=== PATIENT | female | born 1990 ===

== ENCOUNTER 2025-02-22 14:49 | Inpatient (IN) | payer MEDICAID, SELFPAY ==
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
[2025-02-22 17:20] VITALS: BMI 42.3
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
--- OUTSIDE RECORDS SUMMARY | 2025-02-22 18:58 | XMS_ITS | Encounter Summary ---
Author Organization [facility] Address [address] [place] [address] Care Team Providers Care Corrective Therapy Aide Name Role Phone Cassidy Nicolas MD Unavailable Cassidy Nicolas MD Primary Care Provider [phone] Alise Harris MD Primary Care Provider [phone] Alise Harris MD Primary Care Provider Cassidy Nicolas MD Primary Care Provider Alise Harris MD Primary Care Provider Pcp, No Primary Care Provider Unavailabl e Encounter Details Date Type Department Care Team (Late st Contact Info) Description 07/06/2018 Lab Requisition [facility] - [address] [id number] Trinidad Isaacs, DO 300 [facility], [address] [place] [address] [phone] Dysuria Social History Tobacco Use Types Packs/Day Years Used Date Smoking Tobacco: Never Smokeless Tobacco: Never Alcohol Use Standard Drinks/Week Comments Yes 0 (1 standard drink = 0.6 oz pur e alcohol) rarely Comments No Sex and Gender Information Value Date Recorded Sex Assigned at Female 05/20/2023 3:51 PM EST Legal Sex Female 11:50 AM EDT Gender Identity Female 05/20/2023 4:08 PM EST Sexual Orientation Straight 02/21/2025 6: 52 PM EST documented as of this encounter Plan of Treatment Not on file documented as of this encounter Procedures Procedure Name Priority Date/Time Associated Diagnosis Comments TOXICOLOGY SCREEN, URINE (FCU) Routine 07/06/2018 10:28 AM EDT Dysuria TOXICOLOGY SCREEN, URINE Routine 07/06/2018 10:28 AM EDT Dysuria URINE CULTURE AND COLONY COUNT Routine 07/06/2018 10:28 AM EDT Dysuria documented in this encounter Results * (ABNORMAL) Toxicology screen, urine (07/06/2018 10:28 AM EDT) Amphetamine Qualitative, Ur None Detected None Detected 07/06/2018 2:34 PM [facility] Barbiturates Qualitative, Ur None Detected None Detected 07/06/2018 2:34 PM [facility] Benzodiazepines Qualitative, Ur None Detected None Detected 07/06/2018 2:34 PM [facility] Methadone Qualitative, Ur None Detected None Detected 07/06/2018 2:34 PM [facility] Opiates Qualitative, Ur None Detected None Detected 07/06/2018 2:34 PM [facility] Cannabinoids Qualitative, Ur Detected(A) None Detected 07/06/2018 2:34 PM [facility] Cocaine Qualitative, Ur None Detected None Detected 07/06/2018 2:34 PM [facility] Oxycodone Qualitative Urine None Detected None Detected 07/06/2018 2:34 PM [facility] Buprenorphine Qualitative Urine None Detected None Detected 07/06/2018 2:34 PM [facility] Fentanyl Qualitative, Ur None Detected None Detected 07/06/2018 2:34 PM [facility] Creatinine, Urine 290.3 20.0 - 400.0 mg/dL 07/06/2018 2:34 PM [facility] Urine specimen (specimen) 07/06/2018 10:28 AM EDT 07/06/2018 10:28 AM EDT [facility] URINE ORDERABLES Final Result Performing Organization Address City/[facility]/ZIP Co de Phone Number [facility] [address] [place] [address] * Urine Culture and [place] Count (07/06/2018 10:28 AM EDT) Culture 10,000 - 50,000 colonies/ml Mixed Gram Positive Organisms SUSCEPTIBIL ITY TESTING 07/07/2018 1:00 PM EDT [facility] Urine specimen (specimen) Urine specimen obtained by clean catch procedure / Unknown Collection / Unknown 07/06/2018 10:28 AM EDT 07/06/2018 10:28 AM EDT Narrative [facility] - 07/07/2018 1:00 PM EDT Organisms present in low colony counts are not considered significant. No further work up will be performed. Trinidad [facility] DO MICROBIOLOGY - GENERAL ORDERAB LES Final Result Performing Organization Address City/[facility]/ZIP Co de Phone Number [facility] [address] [place], [place] documented in this encounter Visit Diagnoses Diagnosis Dysuria documented in this encounter Additional Health Concerns Infection Onset Date Last Indicated Resolved Time PUI COVID 12/06/2020 12/06/2020 12/07/2020 2:21 AM EDT documented as of this encounter Care Teams Corrective Therapy Aide Relationship Specialty Start Date End Date Cassidy Nicolas MD [address] [place] [address] PCP - Family Medicine 12/05/18 09/24/24 Cassidy Nicolas MD [address] [place] [address] PCP - General 10/06/13 07/18/18 Alise Harris MD [address] [place] [address] PCP - General Family Medicine 07/19/18 12/03/18 [place] [address] PCP - General Family Medicine 12/06/18 02/15/19 [place] [address] PCP - General Family Medicine 02/28/19 04/19/19 [place] [address] PCP - General Family Medicine 04/20/19 05/19/23 [place] [id number] PCP - General 05/20/23 documented as of this encounter
--- OUTSIDE RECORDS SUMMARY | 2025-02-22 18:58 | XMS_ITS | Encounter Summary ---
Author Organization [facility] Address [address] [place] [address] Care Team Providers Care Cytotechnologist/Histotechnologist Name Role Phone Cassidy Nicolas MD Unavailable [phone] Cassidy Nicolas MD Primary Care Provider Alise Harris MD Primary Care Provider [phone] Alise Harris MD Primary Care Provider Cassidy Nicolas MD Primary Care Provider Alise Harris MD Primary Care Provider Pcp, No Primary Care Provider Unavailabl e Encounter Details Date Type Department Care Team (Late st Contact Info) Description 07/06/2018 Ancillary Orders [facility] [address] [facility], [facility] [address] [place] [address] Trinidad Isaacs DO 300 [facility], [facility] [address] [place] [address] Social History Tobacco Use Types Packs/Day Years [...] on file documented as of this encounter Visit Diagnoses Not on filedocumented in this encounter Additional Health Concerns Infection Onset Date Last Indicated Resolved Time PUI COVID 12/06/2020 12/06/2020 12/07/2020 2:21 AM EDT documented as of this encounter Care Teams Cytotechnologist/Histotechnologist Relationship Specialty Start Date End [place] [address] PCP - Family Medicine 12/05/18 09/24/24 [place] [address] PCP - General 10/06/13 07/18/18 [place] [address] PCP - General Family Medicine 07/19/18 12/03/18 [place] [address] PCP - General Family Medicine 12/06/18 02/15/19 [place] [address] PCP - General Family Medicine 02/28/19 04/19/19 [place] [address] PCP - General Family Medicine 04/20/19 05/19/23 [place] [id number] PCP - General 05/20/23 documented as of this encounter
--- OUTSIDE RECORDS SUMMARY | 2025-02-22 18:58 | XMS_ITS | Encounter Summary ---
Author Organization [facility] Address [address] [place] [address] Care Team Providers Care Photogeologist Name Role Phone Cassidy Nicolas MD Unavailable Cassidy Nicolas MD Primary Care Provider Alise Harris MD Primary Care Provider [phone] Alise Harris MD Primary Care Provider [phone] Cassidy Nicolas MD Primary Care Provider Alise Harris MD Primary Care Provider Pcp, No Primary Care Provider Unavailabl e Encounter Details Date Type Department Care Team (Late st Contact Info) Description 07/06/2018 Lab Requisition [facility] [address] [place] [phone] Trinidad Isaacs, DO 300 [facility], [address] [place] [address] [phone] 20 weeks gestation of Social History Tobacco Use Types Packs/Day Years [...] Procedure Name Priority Date/Time Associated Diagnosis Comments LIQUID-BASED PAP TEST Routine 07/06/2018 10:55 AM EDT 20 weeks gestation of documented in this encounter Results * Liquid-Based Pap Test (07/06/2018 10:55 AM EDT) Case Report Gynecologic Cytology Case: [id number] Authorizing Provider: Trinidad Isaacs, Collected: 07/06/2018 1055 Ordering Location: [facility] Received: 07/06/2018 1716 Group First Screen: Gillian Berman Specimen: Liquid-Based Pap, Screening, Cervix, Cloudy 07/10/2018 1:46 PM EDT [facility] Embedded Images 9 1:46 PM EDT [facility] Interpretation NEGATIVE FOR INTRAEPITHELIAL LESION OR MALIGNANCY 07/10/2018 1:46 PM EDT [facility] at 1346 EDT Other Findings SHIFT IN ELEONORA SUGGESTIVE OF BACTERIAL VAGINOSIS 07/10/2018 1:46 PM EDT [facility] Specimen Adequacy Satisfactory for evaluation, endocervical/medrano sformation zone component present 07/10/2018 1:46 PM EDT [facility] LMP 02/12/2018 07/10/2018 1:46 PM EDT [facility] Additional Information The Pap test is a generally effective screening test for squamous cervical cancer and its precursors. However, both false negative and false positive results occur. Results are most reliable when an adequate sample is evaluated on a regular repetitive basis and clinically correlated. Suspicious signs or symptoms may warrant follow-up studies regardless of Pap test findings. 07/10/2018 1:46 PM EDT [facility] Specimen from genital system (specimen) Cervix uteri structure / Unknown 07/06/2018 10:55 AM EDT 07/06/2018 5:16 PM EDT us Trinidad Isaacs DO PATHOLOGY/CYTOLOGY ORDERABLES Final Result [facility] [address] [place] [address] documented in this encounter Visit Diagnoses Diagnosis 20 weeks gestation of documented in this encounter Additional Health Concerns Infection Onset Date Last Indicated Resolved Time PUI COVID 12/06/2020 12/06/2020 12/07/2020 2:21 AM EDT documented as of this encounter Care Teams Photogeologist Relationship Specialty Start Date End Date Cassidy Nicolas MD [address] [place] [address] PCP - Family Medicine 12/05/18 09/24/24 [place] [address] PCP - General 10/06/13 07/18/18 [place] [address] PCP - General Family Medicine 07/19/18 12/03/18 [place] [address] PCP - General Family Medicine 12/06/18 02/15/19 [place] [address] PCP - General Family Medicine 02/28/19 04/19/19 [place] [address] PCP - General Family Medicine 04/20/19 05/19/23 [place] [id number] PCP - General 05/20/23 documented as of this encounter
--- OUTSIDE RECORDS SUMMARY | 2025-02-22 18:58 | XMS_ITS | Encounter Summary ---
Author Organization [facility] Address [address] [place] [address] Care Team Providers Care Clinical Research Nurse Name Role Phone Cassidy Nicolas MD Unavailable Cassidy Nicolas MD Primary Care Provider [phone] Alise Harris MD Primary Care Provider Alise Harris MD Primary Care Provider Cassidy Nicolas MD Primary Care Provider Alise Harris MD Primary Care Provider Pcp, No Primary Care Provider Unavailabl e Encounter Details Date Type Department Care Team (Late st Contact Info) Description 07/06/2018 Ancillary Orders [facility] 300 [facility], [address] [place] [address] Trinidad Isaacs DO 300 [facility], [address] [place] [address] Encounter for anatomic survey Social History Tobacco Use Types Packs/Day Years [...] documented as of this encounter Visit Diagnoses Diagnosis Encounter for anatomic survey documented in this encounter Additional Health Concerns Infection Onset Date Last Indicated Resolved Time PUI COVID 12/06/2020 12/06/2020 12/07/2020 2:21 AM EDT documented as of this encounter Care Teams Clinical Research Nurse Relationship Specialty Start Date End Date Cassidy Nicolas MD [address] [place] [address] PCP - Family Medicine 12/05/18 09/24/24 [place] [address] PCP - General 10/06/13 07/18/18 [place] [address] PCP - General Family Medicine 07/19/18 12/03/18 [place] [address] PCP - General Family Medicine 12/06/18 02/15/19 [place] [address] PCP - General Family Medicine 02/28/19 04/19/19 [place] [address] PCP - General Family Medicine 04/20/19 05/19/23 [place] [address] PCP - General 05/20/23 documented as of this encounter
--- OUTSIDE RECORDS SUMMARY | 2025-02-22 18:58 | XMS_ITS | Encounter Summary ---
Author Organization [facility] Address [address] [place] [address] Care Team Providers Care Testing Machine Operator Name Role Phone Cassidy Nicolas MD Unavailable [phone] Cassidy Nicolas MD Primary Care Provider Alise Harris MD Primary Care Provider Alise Harris MD Primary Care Provider Cassidy Nicolas MD Primary Care Provider Alise Harris MD Primary Care Provider Pcp, No Primary Care Provider Unavailabl e Encounter Details Date Type Department Care Team (Late st Contact Info) Description 07/06/2018 Lab Requisition [facility] [address] [place] [phone] Trinidad Isaacs, DO 300 [facility], [address] [place] [address] [phone] 20 weeks gestation of Social History Tobacco [...] Procedure Name Priority Date/Time Associated Diagnosis Comments C. TRACHOMATIS/N. GONORRHOEAE TMA Routine 07/06/2018 10:55 AM EDT 20 weeks gestation of documented in this encounter Results * C.Trachomatis/N.Gonnorrhea DNA probe (07/06/2018 10:55 AM EDT) Chlamydia trachomatis DNA Negative Negative 07/11/2018 3:20 PM EDT PENDING SALE TO [facility] Neisseria gonorrhoeae DNA Negative Negative 07/11/2018 3:20 PM EDT PENDING SALE TO [facility] Papanicolaou smear specimen (specimen) Cervix uteri structure / Unknown Collection / Unknown 07/06/2018 10:55 AM EDT 07/06/2018 5:17 PM EDT Trinidad Isaacs DO LAB BLOOD ORDERABLES Final Res ult PENDING SALE TO [facility] [address] [place], [place] documented in this encounter Visit Diagnoses Diagnosis 20 weeks gestation of documented in this encounter Additional Health Concerns Infection Onset Date Last Indicated Resolved Time PUI COVID 12/06/2020 12/06/2020 12/07/2020 2:21 AM EDT documented as of this encounter Care Teams Testing Machine Operator Relationship Specialty Start Date End Date Cassidy Nicolas MD [address] [place] [address] PCP - Family Medicine 12/05/18 09/24/24 Cassidy Nicolas MD [address] [place] [address] PCP - General 10/06/13 07/18/18 Alise Harris MD [address] [place] [address] PCP - General Family Medicine 07/19/18 12/03/18 [place] [address] PCP - General Family Medicine 12/06/18 02/15/19 Cassidy Nicolas MD [address] [place] [address] PCP - General Family Medicine 02/28/19 04/19/19 Alise Harris MD [address] [place] [address] PCP - General Family Medicine 04/20/19 05/19/23 [place] [id number] PCP - General 05/20/23 documented as of this encounter
--- OUTSIDE RECORDS SUMMARY | 2025-02-22 18:58 | XMS_ITS | Clinical Summary ---
Author Organization [facility] r Address [address] [place] [address] Phone Care Team Providers Care Crystal Inspector Name Role Phone Alise Harris MD Unavailable [phone] Allergies No known active allergies Medications ondansetron (ZOFRAN ODT) 8 MG disintegrating tablet Take 8 mg by mouth. 9 Active albuterol (VENTOLIN HFA) 90 mcg/actuation inhaler Inhale 2 puffs. Active ibuprofen (ADVIL,MOTRIN) 800 MG tabletIndications:I ncomplete therapeutic Take 1 tablet (800 mg total) by mouth 3 (three) times a day as needed for pain. 40 tablet 1 9 Active inhalational spacing device Spcr Active Hospital, Clinic, or Other Facility Administered Medication Ordered Dose Route Frequency Start Date End Date Status ondansetron injection 4 mg 4 mg IV As needed 07/21/2018 Active doxycycline tablet 200 mg 200 mg Oral Once 07/21/2018 Active Active Problems Problem Noted Date Diagnosed Date Insertion of Nexplanon 07/21/2018 Assessment & Plan (07/21/2018 12:19 PM EDT): Desires Nexplanon; previously discussed. Counseled about when to remove the pressure dressing and steri-strips. All questions answered, informed consent previously obtained. Nexplanon placed without difficulty. Instructed on bandage changes, wound care and signs of infection. Follow up as needed. Therapeutic in second trimester 019 Assessment & Plan (07/21/2018 12:48 PM EDT): 28 y.o. now s/p 18 week surgical termination of . Uncomplicated procedure with MAC, under ultrasound guidance. Patient tolerated well. Maternal blood type O POSITIVE, rhogam not indicated. Doxycycline for infection prophylaxis. Motrin prescription given for pain. Reviewed aftercare instructions including normal bleeding, cramping, and pain. Reviewed call for soaking through more than 2 pads an hour, fevers greater than 100.0F, or severe abdominal pain not managed with over the counter pain medication. Assessment & Plan (07/20/2018 12:13 PM EDT): 28yo at 18wks EGA with an undesired desires termination. We discussed both medical and surgical options for second trimester , including the safety and efficacy of both methods. Discussed: -- surgical sedation options (local vs. IV), procedures, recovery at the hospital, expected course of bleeding and pain at home -- medication induction termination process, medication administration, time course She wishes to proceed with surgical . We discussed the process of D&E, including need for laminaria placement and the details of the OR procedure Discussed the need for NPO with escort available throughout the procedures Discussed the risks including bleeding, infection, perforation, retained POCs, transfusion, laparoscopy, laparotomy, hysterotomy, hysterectomy. Discussed routine course of recovery and warning signs to look out for. She wishes to proceed with D&E. procedure, risks and complications discussed, including bleeding, infection, pain, uterine perforation, damage to adjacent organs, need for additional surgery, retained products of conception, and, very rarely, hysterectomy. Consents signed. Pt would like MAC and is aware of escort and NPO policy. Hgb, T&S and NG/CT cx sent. Appointment for GPU scheduled 07/20 ASA2 Osmotic dilators insertion for D&E scheduled on 07/20 by standard multipass disarticulation procedure. Pt confirms decision to terminate, consents verified in chart. 3x4mm dilapan 1x 4mm laminaria 1x2mm laminairia 1 gauze inserted w/o difficulty. Reviewed overnight, emergency and NPO/escort instructions. Pt to RTC for uncontrolled pain, bleeding>1pad/hour and Tmax>100.4. Given doxy 200 mg PO to take tonight at home. Rx for ibuprofen sent to preferred pharmacy. control counseling 07/20/2018 Assessment & Plan (07/20/2018 12:13 PM EDT): Desires Nexplanon for contraception; no known contraindications use. -Nexplanon efficacy, use/insertion procedure, MOA/s.e.'s/effect on menstrual cycle/irregular bleeding pattern associated w/use, benefits, risks, and alternatives discussed. -Consent for insertion signed. Comments Yes Social History Tobacco Use Types Packs/Day Years Used Date Smoking Tobacco: Never Smokeless Tobacco: Never Alcohol Use Standard Drinks/Week Comments No 0 (1 standard drink = 0.6 oz pur e alcohol) Housing Answer Date Recorded What is your living situation today? I have a [facility] place to live 07/20/2018 Medications Answer Date Recorded Do you have trouble paying for prescriptions? No 07/20/2018 Utilities Answer Date Recorded Do you have trouble paying f or utilites (heat, electricity, internet, or phone bill)? No 07/20/2018 Caregiving [place] Answer Date Recorded Taking care of a child, elder, or disabled perso n No 07/20/2018 Employment Answer Date Recorded Looking for a job, changing jobs, or getting job training No 07/20/2018 Education Answer Date Recorded Getting more education or he lp with school (early child education under 5 years old, high school diploma or GED, college level education) No 07/20/2018 Food Answer Date Recorded Within the past 12 months, w ere you worried whether your food would run out before you got money to buy more? Never true 0 07/20/2018 Within the past 12 months, d id the food you bought just didn't last and you didn't have money to get more? Never true 04/2018 Transportation Answer Date Recorded Do you have trouble getting transportation to medical appointments? No 07/20/2018 Social Support Answer Date Recorded Getting more education or he lp with school (early child education under 5 years old, high school diploma or GED, college level education) No 07/20/2018 Comments Yes Sex and Gender Information Value Date Recorded Sex Assigned at Not on file Legal Sex Female 2:16 PM EDT Gender Identity Not on file Sexual Orientation Not on file Last Filed Vital Signs Vital Sign Reading Time Taken Comments Blood Pressure 124/80 07/21/2018 10:06 AM EDT Pulse 67 07/21/2018 10:06 AM EDT Temperature 36.4 C (97.6 F) 07/21/2018 8:07 AM EDT Respiratory Rate 18 07/21/2018 10:06 AM EDT Oxygen Saturation 100% 07/21/2018 10:06 AM EDT Inhaled Oxygen Concentration - - Weight 91 kg (200 lb 9.6 oz) 07/20/2018 11:20 AM EDT Height 167.6 cm (5' 6 ) 07/20/2018 11:20 AM EDT Body Mass Index 32.38 07/20/2018 11:20 AM EDT Plan of Treatment Health Maintenance Due Date Last Done Comments HIV Lifetime Screening 1992 Hepatitis B Lifetime Screening 1992 Hepatitis C Antibody Lifetim e Screening 1992 Oral Health Screen 1992 HEIP Disability Screen 1997 BEHAVIORAL HEALTH SCREEN 2004 Psych Substance Use Screen 2004 Relationship Safety Screening 2007 DTAP/TDAP VACCINE (1 - Tdap) 2011 Cervical Cancer Screening 2013 Colposcopy 2013 LEEP 2013 PAP SMEAR 2013 Pap + HPV 2013 THRIVE SCREENING 01/20/2019 07/20/2018 HPV VACCINES (1 - 3-dose SCD M series) 2019 LARC-Nexplanon implant 07/21/2021 07/21/2018 COVID-19 Vaccine ( - 2024-2 6 season) 2024 INFLUENZA VACCINE (#1) 2024 Zoster Vaccine (1 of 2) 2042 RSV Immunization 60 Years an d Older OR (1 - 1-dose 75+ series) 2067 IPV VACCINES Aged Out No longer eligi ble based on patient's age to complete this topic MENINGOCOCCAL B Aged Out No longer el igible based on patient's age to complete this topic Pneumonia Vaccine 0-49 Years Aged Out No longer eligible based on patient's age to complete this topic ROTAVIRUS VACCINES Aged Out No longer eligible based on patient's age to complete this topic Procedures Procedure Name Priority Date/Time Associated Diagnosis Comments C.TRACHOMATIS AND N.GONORRHOEAE TMA AMP PROBE,VAGINAL Routine 07/20/2018 11:11 AM EDT Incomplete therapeutic from Last 3 Months or Most Recently Relevant to Health Maintenance Results * C.trachomatis and N.gonorrhoeae TMA amp probe,Vaginal VAGINAL SAMPLE (>=14 yrs of age) (07/20/2018 11:11 AM EDT) Chlamydia Trachomatis Antigen Result NEGATIVE FOR CHLAMYDIA TRACHOMATIS RIBOSOMAL RNA BY TISSUE PACKER MEDIATED AMPLIFICATION (TMA). NEGATIVE FOR CHLAMYDIA TRACHOMATIS RIBOSOMAL RNA BY TRANSCRI 07/20/2018 7:44 PM EDT [facility] Neisseria Gonorrhoeae Antigen NEGATIVE FOR NEISSERIA GONORRHOEAE RIBOSOMAL RNA BY TISSUE PACKER MEDIATED AMPLIFICATION (TMA). NEGATIVE FOR NEISSERIA GONORRHOEAE RIBOSOMAL RNA BY TRANSCRI 07/20/2018 7:44 PM EDT [facility] Comment:The performance of v aginal swab specimens has not been evaluated in women or in adolescents less than 14 years of age. Vagina 07/20/2018 11:1 1 AM EDT 07/20/2018 2:15 PM EDT us Carey Borden MD BODY FLUIDS AND STOOLS ORDERABL ES Final Result [facility]<9>CLIA [id number]<9>[address] [facility] [place] [address], from Last 3 Months or Most Recently Relevant to Health Maintenance Care Teams Crystal Inspector Relationship Specialty Start Date End Date Alise Harris MD [address] [place] [address] PCP - Insurance 07/20/18
--- OUTSIDE RECORDS SUMMARY | 2025-02-22 18:58 | XMS_ITS | Clinical Summary ---
Author Organization [facility] Address [address] [place] [address] Care Team Providers Care Sole Inker Name Role Phone Pcp, No Primary Care Provider Unavailabl e Allergies No known active allergies Medications aspirin-acetaminop hen-caffeine (EXCEDRIN MIGRAINE) 250-250-65 MG per tablet Take by mouth every 6 (six) hours as needed for headaches. Active SUMAtriptan (IMITREX) 100 MG tablet Take 0.5 tablets (50 mg total) by mouth once as needed for migraine May repeat in 2 hours if unresolved. Do not exceed 200 mg in 24 hours. 9 tablet 12/07/19 19 Active topiramate (TOPAMAX) 25 MG tablet 1 tablet po at hs for 7 days, then 2 tablets po at hs 60 tablet 2 12/08/19 19 Active methocarbamol (ROBAXIN) 500 MG tablet Take 1 tablet (500 mg total) by mouth 2 (two) times a day 20 tablet 12/07/19 19 025 Discontinued chlorhexidine (PERIDEX) 0.12 % oral rinse solution Apply 15 mL to the mouth or throat 2 (two) times a day Swish and spit 473 mL 12/07/19 21 025 Discontinued ondansetron (ZOFRAN-ODT) 4 MG disintegrating tabletIndications: Nausea Dissolve 1 tablet (4 mg total) in mouth every 8 (eight) hours as needed for nausea or vomiting 30 tablet 3 05/20/19 24 025 Discontinued Active Problems Problem Noted Date Diagnosed Date Hallucinations 02/21/2025 Hyperemesis gravidarum 07/09/2018 Asthma ACL tear Overview (02/26/2014): Right knee Encounters Date Type Department Care Team Description 02/21/2025 8:18 PM EST - 02/22/2025 1:16 PM EST Hospital Encounter [address] [address] Machelle Roberto NP El-Daher, Kanaan K, NP Hallucinations Discharge Disposition: [facility] with Planned Readmission 02/21/2025 Travel from Last 3 Months Immunizations Immunization Administration Dates Next Due DTP 11/11/1993, 3,1992,1992 DTaP 11/19/1997 Hepatitis B, Pediatric/Adolescent, PF 02/27/1993 ,1992,1992 Hib (PRP-T) 08/03/1993,199 3,1992,1992 MMR 11/19/1997,08/03/1993 OPV 09/08/1998, 8,11/11/1993,1992,1992,1992 TD 5-2Lfu PRESERVATIVE FREE IM 02/23/2005 Varicella 11/09/2010,11/10/1999 Family History Medical History Relation Name Comments No Known Problems Brother 1 1/2 No Known Problems Brother 2 1/2 No Known Problems Father No Known Problems Maternal Grandfather Asthma Maternal Grandmother No Known Problems Mother No Known Problems Paternal Grandfather No Known Problems Paternal Grandmother Cancer Neg Hx Diabetes Neg Hx Heart failure Neg Hx Hyperlipidemia Neg Hx Hypertension Neg Hx Migraines Neg Hx Osteoarthritis Neg Hx Rashes / Skin problems Neg Hx Rheum arthritis Neg Hx Seizures Neg Hx Stroke Neg Hx Thyroid disease Neg Hx Relation Name Status Comments Brother 1 1/2 Alive Brother 2 1/2 Alive Father Alive Maternal Grandfather Alive Maternal Grandmother Alive Mother Alive Paternal Grandfather Alive Paternal Grandmother Alive Social History Tobacco Use Types Packs/Day Years [...] Orientation Straight 02/21/2025 6: 52 PM EST Last Filed Vital Signs Vital Sign Reading Time Taken Comments Blood Pressure 99/65 02/22/2025 12:22 PM EST Pulse 94 02/22/2025 12:22 PM EST Temperature 36.6 C (97.9 F) 02/22/2025 12:22 PM EST Respiratory Rate 18 02/22/2025 12:22 PM EST Oxygen Saturation 100% 02/22/2025 12:22 PM EST Inhaled Oxygen Concentration - - Weight 86.2 kg (190 lb) 06/24/2023 9:08 PM EDT Height 167.6 cm (5' 6 ) 06/24/2023 9:08 PM EDT Body Mass Index 30.67 06/24/2023 9:08 PM EDT Plan of Treatment Health Maintenance Due Date Last Done Comments Hepatitis B Screening 2010 Pneumococcal Vaccines 0-49 yrs (includes High Risk) (1 of 2 - PCV) 2011 DTaP,Tdap,and Td Vaccines (7 - Tdap) 02/23/2015 02/23/2005, 11/19/1997, 11/11/1993, Additional history exists Annual Physical 08/14/2015 08/13/2014 COVID-19 Vaccine (1 - season) 2024 Influenza Vaccine (#1) 2024 HIB Vaccines Completed 08/03/1993, 10/20, 1992, Additional history exists Cervical Cancer Screening Discontinued Pap Smear Discontinued 07/06/2018 Colposcopy Discontinued HPV Testing Discontinued Hepatitis A Vaccine Aged Out No longe r eligible based on patient's age to complete this topic LEEP/Cone Biopsy Discontinued Pap/HPV Cotest Discontinued Procedures Procedure Name Priority Date/Time Associated Diagnosis Comments ECG 12-LEAD STAT 02/21/2025 10:19 PM EST TOXICOLOGY SCREEN, URINE (NON FCU) STAT 02/21/2025 8:46 PM EST TOXICOLOGY SCREEN, URINE STAT 02/21/2025 8:46 PM EST LIGHT BLUE TOP Routine 02/21/2025 6:31 PM EST RED TOP Routine 02/21/2025 6:31 PM EST HCG QUALITATIVE SERUM STAT 02/21/2025 6:31 PM EST EXTRA TUBES Routine 02/21/2025 6:31 PM EST ETHANOL STAT 02/21/2025 6:31 PM EST MAGNESIUM STAT 02/21/2025 6:31 PM EST TROPONIN I HIGH SENSITIVITY STAT 02/21/2025 6:31 PM EST COMPREHENSIVE METABOLIC PANEL STAT 02/21/2025 6:31 PM EST CBC AND AUTO DIFFERENTIAL STAT 02/21/2025 6:31 PM EST LIQUID-BASED PAP TEST Routine 07/06/2018 10:55 AM EDT 20 weeks gestation of from Last 3 Months or Most Recently Relevant to Health Maintenance Results * ECG 12-LEAD (02/21/2025 10:19 PM EST) Narrative Jake Alejandra MD - 02/21/2025 10:19 PM EST Jake Alejandra MD 02/21/2025 10:19 PM EKG electrocardiogram Date/Time: 02/21/2025 10:19 PM Performed by: Jake Alejandra MD Authorized by: Triage Protocol EmergencyMD Measurements: BPM: 98 Findings: Rate: normal Rhythm: Sinus rhythm QRS axis: normal Conduction: normal Clinical impression: normal ECG Interpreted by ED physician Comparison to Previous ECG: Not compared with previous ECG Triage Protocol Emergency MD ECG ORDERABLES Fin al Result * (ABNORMAL) Toxicology screen, urine (02/21/2025 8:46 PM EST) Amphetamine Qualitative, Ur None Detected None Detected 02/21/2025 9:07 PM [facility] Barbiturates Qualitative, Ur None Detected None Detected 02/21/2025 9:07 PM [facility] Benzodiazepines Qualitative, Ur None Detected None Detected 02/21/2025 9:07 PM [facility] Methadone Qualitative, Ur None Detected None Detected 02/21/2025 9:07 PM [facility] Opiates Qualitative, Ur None Detected None Detected 02/21/2025 9:07 PM [facility] Cannabinoids Qualitative, Ur Detected(A) None Detected 02/21/2025 9:07 PM [facility] Cocaine Qualitative, Ur None Detected None Detected 02/21/2025 9:07 PM [facility] Oxycodone Qualitative Urine None Detected None Detected 02/21/2025 9:07 PM [facility] Buprenorphine Qualitative Urine None Detected None Detected 02/21/2025 9:07 PM [facility] Fentanyl Qualitative, Ur None Detected None Detected 02/21/2025 9:07 PM [facility] Creatinine, Urine 118.0 20.0 - 400.0 mg/dL 02/21/2025 9:07 PM [facility] Urine Collection / Unknown 02/21/2025 8:46 PM EST 02/21/2025 8:50 PM [facility] - 02/21/2025 9:07 PM EST This [...] the patient's clinical condition. us Wendy Barrios ACCOUNTS PAYABLE BOOKKEEPER URINE ORDERABLES Final Resu lt Performing Organization Address City/[facility]/ZIP Co de Phone Number [facility] [address] [place] [id number] * Red Top (02/21/2025 6:31 PM EST) Extra Tube Auto resulted. 02/21/2025 10:36 PM EST [facility] Comment:Hold for add-ons. Blood Venipuncture / Unknown 02/21/2025 6:31 PM EST 02/21/2025 7:00 PM EST Triage Protocol Emergency MD LAB BLOOD ORDERABLE S Final Result Performing Organization Address [facility] Co de Phone Number [facility] [address] [place] [phone] * Light Blue Top (02/21/2025 6:31 PM EST) Extra Tube Auto resulted. 02/21/2025 10:36 PM EST [facility] Comment:Hold for add-ons. Blood Venipuncture / Unknown 02/21/2025 6:31 PM EST 02/21/2025 7:00 PM EST Triage Protocol Emergency MD LAB BLOOD ORDERABLE S Final Result Performing Organization Address [facility] Co de Phone Number [facility] [address] [place] [phone] * Troponin I High Sensitivity (02/21/2025 6:31 PM EST) Troponin I High Sensitivity <3 0 - 34 pg/mL 02/21/2025 7:11 PM EST [facility] Blood Venipuncture / Unknown 02/21/2025 6:31 PM EST 02/21/2025 6:57 PM EST [facility] - 02/21/2025 7:11 PM EST Definite [...] MD LAB BLOOD ORDERABLE S Final Result [facility] [address] [place] [address] * CBC and Auto Differential (02/21/2025 6:31 PM EST) WBC 7.5 4.8 - 11.2 10*3/ L 02/21/2025 7:00 PM EST [facility] RBC 4.45 3.60 - 5.40 10*6/ L 02/21/2025 7:00 PM [facility] HGB 12.7 12.0 - 15.8 g/dL 02/21/2025 7:00 PM [facility] HCT 39.1 36.0 - 48.0 % 02/21/2025 7:00 PM EST [facility] MCV 87.9 82.0 - 98.0 fL 02/21/2025 7:00 PM [facility] MCH 28.5 27.0 - 35.0 pg 02/21/2025 7:00 PM EST [facility] MCHC 32.5 32.0 - 37.0 g/dL 02/21/2025 7:00 PM [facility] RDW 13.3 12.0 - 15.0 % 02/21/2025 7:00 PM EST [facility] PLT 298 150 - 400 10*3/ L 02/21/2025 7:00 PM [facility] MPV 10.0 7.0 - 14.0 fL 02/21/2025 7:00 PM [facility] Neut % 67.4 45.0 - 85.0 % 02/21/2025 7:00 PM [facility] Immature Granulocytes % 0.1 0 - 5.0 % 02/21/2025 7:00 PM [facility] Lymph % 21.6 15.0 - 45.0 % 02/21/2025 7:00 PM [facility] Wilkes % 7.6 0.0 - 12.0 % 02/21/2025 7:00 PM [facility] Eos % 2.9 0.0 - 7.0 % 02/21/2025 7:00 PM [facility] Baso % 0.4 0.0 - 3.0 % 02/21/2025 7:00 PM [facility] NRBC% 0 0 /100 WBC /100 WBC 02/21/2025 7:00 PM [facility] Neut # 5.1 2.2 - 9.5 10*3/ L 02/21/2025 7:00 PM [facility] Immature Granulocytes Absolute 0.01 0.00 - 0.56 10*3/ L 02/21/2025 7:00 PM [facility] Lym # 1.6 0.7 - 5.0 10*3/ L 02/21/2025 7:00 PM [facility] Wilkes # 0.6 0.0 - 1.3 10*3/ L 02/21/2025 7:00 PM [facility] Eos # 0.2 0.0 - 0.4 10*3/ L 02/21/2025 7:00 PM [facility] Baso # 0.0 0.0 - 0.3 10*3/ L 02/21/2025 7:00 PM [facility] Blood Venipuncture / Unknown 02/21/2025 6:31 PM EST 02/21/2025 6:58 PM EST us Triage Protocol Emergency MD LAB BLOOD ORDERABLE S Final Result [facility] [address] [place] [phone] * hCG, serum, qualitative (02/21/2025 6:31 PM EST) hCG Qual Negative Negative 02/21/2025 9:45 PM EST [facility] Blood Venipuncture / Unknown 02/21/2025 6:31 PM EST 02/21/2025 7:00 PM EST us Machelle Roberto ACCOUNTS PAYABLE BOOKKEEPER LAB BLOOD ORDERABLES Final Resu lt Performing Organization Address [facility]/ZIP Co de Phone Number [facility] [address] [place] [address] * Magnesium (02/21/2025 6:31 PM EST) Magnesium 1.6 1.6 - 2.6 mg/dL 02/21/2025 7:11 PM EST [facility] Blood Venipuncture / Unknown 02/21/2025 6:31 PM EST 02/21/2025 6:57 PM EST us Triage Protocol Emergency MD LAB BLOOD ORDERABLE S Final Result Performing Organization Address City/[facility]/ZIP Co de Phone Number [facility] [address] [place] [address] * Ethanol (02/21/2025 6:31 PM EST) Ethanol Lvl <3 <10 mg/dL 02/21/2025 7:13 PM EST [facility] Blood Venipuncture / Unknown 02/21/2025 6:31 PM EST 02/21/2025 6:57 PM EST us Wendy Barrios ACCOUNTS PAYABLE BOOKKEEPER LAB BLOOD ORDERABLES Final Result [facility] [address] [place] [address] * (ABNORMAL) Comprehensive metabolic panel (02/21/2025 6:31 PM EST) Sodium 139 136 - 145 mEq/L 02/21/2025 7:11 PM [facility] Potassium 3.2(L) 3.5 - 5.1 mEq/L 02/21/2025 7:11 PM [facility] Chloride 103 98 - 109 mEq/L 02/21/2025 7:11 PM [facility] CO2 26 20 - 31 mEq/L 02/21/2025 7:11 PM [facility] Anion Gap 10 4 - 15 mEq/L 02/21/2025 7:11 PM [facility] Glucose 124(H) 70 - 100 mg/dL 02/21/2025 7:11 PM [facility] Creatinine 0.80 0.50 - 1.00 mg/dL 02/21/2025 7:11 PM [facility] eGFR (Female) >60 60 - 115 mL/min 02/21/2025 7:11 PM [facility] Comment:Calculation based on the Chronic Kidney Disease Epidemiology Collaboration (CKD-EPI) equation refit without adjustment for race. BUN 7(L) 9 - 23 mg/dL 02/21/2025 7:11 PM [facility] Calcium 9.4 8.3 - 10.6 mg/dL 02/21/2025 7:11 PM [facility] Total Protein 7.7 5.7 - 8.2 g/dL 02/21/2025 7:11 PM [facility] Albumin 4.6 3.2 - 4.8 g/dL 02/21/2025 7:11 PM [facility] A/G Ratio 1.5 1.0 - 2.3 02/21/2025 7:11 PM [facility] Total Bilirubin 0.3 0.2 - 1.0 mg/dL 02/21/2025 7:11 PM [facility] AST 11(L) 13 - 40 U/L 02/21/2025 7:11 PM EST [facility] Alkaline Phosphatase 57 46 - 116 IU/L 02/21/2025 7:11 PM EST [facility] ALT 11 7 - 40 U/L 02/21/2025 7:11 PM EST [facility] Blood Venipuncture / Unknown 02/21/2025 6:31 PM EST 02/21/2025 6:57 PM EST us Triage Protocol Emergency MD LAB BLOOD ORDERABLE S Final Result [facility] [address] [place] [address] * Liquid-Based Pap Test (07/06/2018 10:55 AM EDT) Case Report Gynecologic Cytology Case: [id number] Authorizing Provider: Trinidad Isaacs DO Collected: 07/06/2018 1055 Ordering Location: [facility] Received: 07/06/2018 1716 [employer] Screen: Gillian Berman Specimen: Liquid-Based Pap, Screening, Cervix, Cloudy 07/10/2018 1:46 PM EDT [facility] Embedded Images 9 1:46 PM EDT [facility] Interpretation NEGATIVE FOR INTRAEPITHELIAL LESION OR MALIGNANCY 07/10/2018 1:46 PM EDT [facility] at 1346 EDT Other Findings SHIFT IN ELEONORA SUGGESTIVE OF BACTERIAL VAGINOSIS 07/10/2018 1:46 PM EDT [facility] Specimen Adequacy Satisfactory for evaluation, endocervical/medrano sformation zone component present 07/10/2018 1:46 PM EDT [facility] LMP 02/12/2018 07/10/2018 1:46 PM EDT [facility] Additional Information The Pap [...] Pap test findings. 07/10/2018 1:46 PM EDT [facility] Specimen from genital system (specimen) Cervix uteri structure / Unknown 07/06/2018 10:55 AM EDT 07/06/2018 5:16 PM EDT Trinidad Isaacs DO PATHOLOGY/CYTOLOGY ORDERABLES Final Result [facility] [address] [place] [address] from Last 3 Months or Most Recently Relevant to Health Maintenance Insurance WORKERS COMP OTHER BILL TO INS CARRIER Advance Directives For more information, please contact: [phone] * Full Code (Latest Code Status on File) Date Activated Date Inactivated Comments 07/09/2018 1:03 PM 08/01/2018 9:13 AM Care Teams Sole Inker Relationship Specialty [place] [id number] PCP - General 05/20/23
--- OUTSIDE RECORDS SUMMARY | 2025-02-22 18:58 | XMS_ITS | Encounter Summary ---
Author Organization [facility] Address [address] [place] [address] Care Team Providers Care Supervisor Testing Name Role Phone Cassidy Nicolas MD Unavailable [phone] Cassidy Nicolas MD Primary Care Provider [phone] Alise Harris MD Primary Care Provider [phone] Pcp, No Primary Care Provider Unavailabl e Encounter Details Date Type Department Care Team (Late st Contact Info) Description 03/07/2019 Procedure Pass [address] [address] Social History Tobacco Use Types Packs/Day Years [...] documented as of this encounter Care Teams Supervisor Testing Relationship Specialty Start Date End Date Cassidy Nicolas MD [address] [place] [address] PCP - Family Medicine 12/05/18 09/24/24 Cassidy Nicolas MD [address] [place] [address] PCP - General Family Medicine 02/28/19 04/19/19 Alise Harris MD [address] [place] [address] PCP - General Family Medicine 04/20/19 05/19/23 [place] [id number] PCP - General 05/20/23 documented as of this encounter
--- OUTSIDE RECORDS SUMMARY | 2025-02-22 18:59 | XMS_ITS | Encounter Summary ---
Author Organization [facility] Address [address] [place] [address] Care Team Providers Care Assistant To The Ceo Name Role Phone Pcp, No Primary Care Provider Unavailabl e Encounter Details Date Type Department Care Team (Latest Contact Info) Description 02/21/2025 Travel Social History Tobacco Use Types Packs/Day Years [...] Diagnoses Not on filedocumented in this encounter Care Teams Assistant To The Ceo Relationship Specialty [place] [id number] PCP - General 05/20/23 documented as of this encounter
[2025-02-22 20:00] VITALS: RESP 14
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
[2025-02-23 08:00] VITALS: BP 111/65; PULSE 73; RESP 18; TEMP 36.9; O2SAT 98
[2025-02-23 08:15] LABS: Alanine Aminotransferase 14 U/L (0-31); Albumin Level 4.4 g/dL (3.5-5.0); Alkaline Phosphatase 50 U/L (39-117); Anion Gap 15 (12-20); Aspartate Amino Transferase 26 U/L (5-31); Blood Urea Nitrogen 8 mg/dL (9-16); Calcium 9.4 mg/dL (8.4-10.2); Carbon Dioxide 25 mmol/L (22-29); Chloride 107 mmol/L (96-108); Cholesterol 132 mg/dL (<200); Creatinine Clr Calc Pharmacy 141.3; Estimated Glomerular Filt Rate > 60; HDL Cholesterol 30 mg/dL (>40); Magnesium 1.5 mg/dL (1.6-2.6); Potassium 3.8 mmol/L (3.3-5.1); Sodium 143 mmol/L (135-145); Total Protein 6.9 g/dL (6.5-8.0); Triglycerides 80 mg/dL (<150)
[2025-02-23 09:00] LABS: Free T4 (Free Thyroxine) 1.29 ng/dL (0.71-1.85); Thyroid Stimulating Hormone 0.75 uIU/mL (0.32-4.0)
[2025-02-23 09:13] LABS: Folate 9.1 ng/mL (> or = 4.0); Vitamin B12 301 pg/mL (200-900)
--- NOTE | 2025-02-23 10:13 | P.PNPSI_ITS ---
Subjective Subjective Date of Service: 02/23/25 Reason For Visit: F29 Subjective Notes: Conditional Voluntary and 3 Day Healthcare Proxy: No Guardianship: No Medical Problems Affecting Mental Status: No Interim History: Reviewed with team, plan of care reviewed, discussed with pt. She reviewed precipitants. Today, clear, alert, oriented. Hoping to discharge before Tuesday. I don't need to be here. Medication Compliance: Yes Side effects from medications: No Attending Groups: Intermittent Review of Systems Acute medical concerns: No Medical Review of Systems: unchanged Review of Systems Review of Systems Denies Mental Status Exam Mental Status Exam Patient Appearance: Appropriate Patient Orientation: Person, Place, Time and Situation Level of Consciousness: Alert Patient Behavior: Talkative Mood Description: Calm and Appropriate Affect Description: Calm and Appropriate Patient Cognition Impaired: No Ability to Follow Directions: Good Speech Pattern: Spontaneous Speech Memory Description: Episodic Impaired Hallucinations: None Delusions: Not Present Thought Process: Intact Thought Content: positive for Intact Depressive Symptoms: Thoughts of /Suicide (denies) Judgement: Fair Diagnostics Vital Signs (24Hr): Vital Signs - 24 hr 02/22/25 20:00 02/23/25 08:00 Temperature 98.5 F Pulse Rate 73 Respiratory Rate 14 18 Blood Pressure 111/65 Pulse Oximetry 98 Oxygen Delivery Method Room Air BMI result Body Mass Index 42.3 Labs 02/23/25 07:41 Labs: Laboratory Results - last 48 hr 02/23/25 07:41 Sodium 143 Potassium 3.8 Chloride 107 Carbon Dioxide 25 Anion Gap 15 BUN 8 L Creatinine 0.65 Estim Creat Clear Calc 141.3 Estimated GFR > 60 Random Glucose 95 Estimat Average Glucose 108 Hemoglobin A1c % 5.4 Calcium 9.4 Magnesium 1.5 L Total Bilirubin 0.5 AST 26 ALT 14 Alkaline Phosphatase 50 Total Protein 6.9 Albumin 4.4 Triglycerides 80 Cholesterol 132 LDL Cholesterol, Calc 86 HDL Cholesterol 30 L Vitamin B12 301 Folate 9.1 TSH 0.75 Free T4 1.29 Medications Medications Current Medications Acetaminophen (Acetaminophen 325 Mg Tablet) 650 mg PO Q6H PRN PRN Reason: Headache/Pain, Scale 1-10 Al Hydroxide/Mg Hydroxide (Magnesium Hydrox/Alum Hydrox 30 Ml Oral.Susp) 30 ml PO Q6H PRN PRN Reason: Heartburn/Nausea Hydroxyzine HCl (Hydroxyzine Hcl 25 Mg Tablet) 25 mg PO Q6H PRN PRN Reason: mild anxiety Magnesium Hydroxide (Milk Of Magnesia 30 Ml Oral.Susp) 30 ml PO DAILY PRN PRN Reason: Constipation Melatonin (Melatonin 3 Mg Tablet) 6 mg PO BEDTIME [facility] Last Admin: 02/22/25 20:51 Dose: 6 mg Nicotine (Nicotine 21 Mg Patch.Td24) 21 mg TRANSDERMA DAILY PRN PRN Reason: nicotine craving Nicotine Polacrilex (Nicotine Polacrilex 2 Mg Gum) 2 mg BUCCAL Q2H PRN PRN Reason: Nicotine Cravings Last Admin: 02/23/25 09:34 Dose: 2 mg Olanzapine (Olanzapine 5 Mg Tablet) 5 mg PO BID PRN PRN Reason: agitation Risperidone (Risperidone 0.5 Mg Tablet) 0.5 mg PO BID [facility] Last Admin: 02/23/25 09:33 Dose: 0.5 mg Trazodone HCl (Trazodone Hcl 50 Mg Tablet) 50 mg PO BEDTIME MRX1 PRN PRN Reason: Insomnia Allergies Allergies Allergy/AdvReac Type Severity Reaction Status Date / Time No Known Allergies Allergy Verified 02/22/25 17:20 Assessment & Plan Assessment & Plan (1) Unspecified psychosis: Status: Acute Code(s): F29 - Unspecified psychosis not due to a substance or known physiological condition Plan HPI: Patient is a 34 years old single Azerbaijani speaking female with history of migraine, asthma, ADHD who presented with paranoid, hallucinations, increase anxiety and psychosis.. Patient initially presented complain of migraine and chest pain. She states that she has chest pain when she is anxious. Patient states that her mother trying to kill her with a gun and then she states that she thinks mom is dealing her we would. Mother reports that patient has become more paranoid with a past weeks become actually was over after Thanksgiving. Mother states she has had similar episode in the past. Symptoms likely secondary to psychiatric psychosis. Formulation/clinical reasoning: Poor sleep, poor appetite, increase in depression, anxiety symptoms, increasing in psychotic behaviors. History of ADHD, no other history of psychiatric admission. No outpatient providers. Not currently on medications. Given the above information, patient will be benefit in restrictive environment for her own safety, medication management for psychotic/anxiety/depression symptoms. We will refer patient to outpatient psychiatry services for aftercare. Hospital course: 02/22/25: Start patient with low-dose of risperidone 0.5 twice a day as needed for psychosis. We will monitor for side effects/effectiveness. Marijuana use is not something new to her. We will continue to monitor to see if any symptoms induced from THC. Melatonin 6 mg at bedtime for insomnia. Patient is aware of other PRNs available. Currently paranoid, anxious. 02/23/25: Reviewed with team, plan of care reviewed, discussed with pt. She reviewed precipitants. Today, clear, alert, oriented. Hoping to discharge before Tuesday. I don't need to be here. Plan Patient on 15 minute checks for safety. Admitted to . TDN. Tuesday.02/27/25. Work with treatment team to do collateral with family. Currently has no OP pyschiatrist/Therapsit or PCP Contact the hospitalist regarding hospitalist consultation on admission: Elissa 3.2 in the ED. UTox +THC. EKG NSR. Normal EKG. Patient educated on: substance abuse Reason for continued inpatient stay Substantial Risk for: rapid decompensation Time Spent With Patient Time: Total time managing care of this patient today ____ minutes.
--- NOTE | 2025-02-23 16:29 | HO.PM.IMCN ---
History of Present Illness Data of Consult Service Date: 02/23/25 Primary Care Provider: None Physician HPI Reason for consult: Admission H&P Pt is a 34-year-old female with a PMH significant for mild intermittent asthma, migraines, ADHD, and mood disorder who is admitted to M5 psychiatry unit for paranoia, hallucinations, increased anxiety, and psychosis. Pt apparently presented to the ED stating that her mother was trying to kill her with a gun and steal her weed. Medical consult for admission H&P. Pt is seen and evaluated on the unit where she appears calm and cooperative. States she only uses a rescue inhaler and usually only once every 2-3 months. Was previously on medication for ADHD, but stopped but she is in college and she did not like the side effects. Currently pt has no acute medical complaints and reports she feels medically well. Denies chest pain/pressure, palpitations. No SOB or difficulty breathing. Denies fever, chills, nausea, vomiting, abdominal pain. No acute vision changes or headache. Vital signs stable. Review of Systems Review of Systems: Yes all other systems are reviewed and are negative [facility] Medical History (Updated 02/23/25 @ 17:08 by JOSÉ MANUEL Healy) ADHD Mild intermittent asthma Social History Household Members: Family Household Members Other:: MOTHER AND STEP-FATHER Housing: House Do you presently have visiting nurse or other home services: No Patient Tobacco Use Status: Former Tobacco user Tobacco use type: Smokeless Tobacco Smoked in Last 30 Days: No e-Cigarette/Vaping Use: Former Use Patient Interested in Nicotine Replacement: No Patient Given Instructions on How to Stop Smoking: No Second Hand Smoke Exposure: No Currently Displaying Signs/Symptoms of Drug Intoxication Withdrawal: No Have you been hit, kicked, punched, or otherwise hurt by someone within the past year? If so, by whom?: No Do you feel safe in your current relationship?: No Current Relationship Is there a partner from a previous relationship who is making you feel unsafe now?: No Are you made to feel afraid or neglected: No Advance Directives: No Advance Directives Information Provided: No Do you have thoughts of harming others: None Do you have a plan to hurt others: No Plan Recently lost weight without trying: No Eating poorly because of decreased appetite: Yes Nutrition Risks: No Nutritional Risk Patient : No : No Poor oral hygiene: No Meds Allergies Allergy/AdvReac Type Severity Reaction Status Date / Time No Known Allergies Allergy Verified 02/22/25 17:20 Active Medications: Current Medications Acetaminophen (Acetaminophen 325 Mg Tablet) 650 mg PO Q6H PRN PRN Reason: Headache/Pain, Scale 1-10 Al Hydroxide/Mg Hydroxide (Magnesium Hydrox/Alum Hydrox 30 Ml Oral.Susp) 30 ml PO Q6H PRN PRN Reason: Heartburn/Nausea Hydroxyzine HCl (Hydroxyzine Hcl 25 Mg Tablet) 25 mg PO Q6H PRN PRN Reason: mild anxiety Magnesium Hydroxide (Milk Of Magnesia 30 Ml Oral.Susp) 30 ml PO DAILY PRN PRN Reason: Constipation Melatonin (Melatonin 3 Mg Tablet) 6 mg PO BEDTIME [facility] Last Admin: 02/22/25 20:51 Dose: 6 mg Nicotine (Nicotine 21 Mg Patch.Td24) 21 mg TRANSDERMA DAILY PRN PRN Reason: nicotine craving Nicotine Polacrilex (Nicotine Polacrilex 2 Mg Gum) 2 mg BUCCAL Q2H PRN PRN Reason: Nicotine Cravings Last Admin: 02/23/25 09:34 Dose: 2 mg Olanzapine (Olanzapine 5 Mg Tablet) 5 mg PO BID PRN PRN Reason: agitation Risperidone (Risperidone 0.5 Mg Tablet) 0.5 mg PO BID [facility] Last Admin: 02/23/25 09:33 Dose: 0.5 mg Trazodone HCl (Trazodone Hcl 50 Mg Tablet) 50 mg PO BEDTIME MRX1 PRN PRN Reason: Insomnia Home Medications ?Medication ?Instructions ?Recorded ?Confirmed ?Last Taken ?Type No Known Home Meds 02/22/25 02/22/25 Unknown History Physical Exam Vital Signs and Narrative: Vital Signs: Last Vital Signs Temp 98.5 F 02/23/25 08:00 Pulse 73 02/23/25 08:00 Resp 18 02/23/25 08:00 BP 111/65 02/23/25 08:00 Pulse Ox 98 02/23/25 08:00 O2 Del Method Room Air 02/23/25 08:00 BMI result Body Mass Index 42.3 General: AOx3, no acute distress Resp: CTA bilaterally CVS: S1, S2, RRR GI: +BS, NT, no distention Skin: Warm, dry Neuro: Cranial nerves II-XII grossly intact bilaterally. Motor grossly intact bilaterally Extremities: No edema Psych: Appropriate affect Results Labs 02/23/25 07:41 Labs: Laboratory Results - last 24 hr 02/23/25 07:41 Anion Gap 15 Estim Creat Clear Calc 141.3 Estimated GFR > 60 Random Glucose 95 Estimat Average Glucose 108 Hemoglobin A1c % 5.4 Calcium 9.4 Magnesium 1.5 L Total Bilirubin 0.5 AST 26 ALT 14 Alkaline Phosphatase 50 Total Protein 6.9 Albumin 4.4 Triglycerides 80 Cholesterol 132 LDL Cholesterol, Calc 86 HDL Cholesterol 30 L Vitamin B12 301 Folate 9.1 TSH 0.75 Free T4 1.29 Assessment and Plan (1) Medical clearance for psychiatric admission: Status: Acute Plan Pt is a 34-year-old female with a PMH significant for mild intermittent asthma, migraines, ADHD, and mood disorder who is admitted to M5 psychiatry unit for paranoia, hallucinations, increased anxiety, and psychosis. Pt apparently presented to the ED stating that her mother was trying to kill her with a gun and steal her weed. Medical consult for admission H&P. Mood disorder Plan as per psychiatry Mild intermittent asthma Not in acute exacerbation Only on home rescue inhaler which she rarely uses Albuterol inhaler prn ADHD Not on home meds Thank you for allowing us to participate in the care of this patient. Signing off at this time. Please reach out if any acute complaints or issues arise.
[2025-02-23 19:44] VITALS: BP 119/64; PULSE 93; TEMP 36.3; O2SAT 100
--- NOTE | 2025-02-24 05:47 | P.PNPSI_ITS ---
Subjective Subjective Date of Service: 02/24/25 Reason For Visit: F29 Subjective Notes: Conditional Voluntary and 3 Day Healthcare Proxy: No Guardianship: No Medical Problems Affecting Mental Status: No Interim History: Pt discussed concerns as room-mate, who is confused, was wearing her sweatshirt when she exited the shower. Team is addressing this as we meet. Pt reports feeling well, I hope to leave before Tuesday. I don't belong here. Tolerating Risperdal, slept 7 hours and reports symptoms have ceased. Discussed precipitants to admission. Reports mother picked up her cannabis at dispensary and it was a different type. Sx began after this. Reviewed possible SE of cannabis and that her response is not uncommon and she may consider not utilizing cannabis as often responses can intensify. Discussed not using cannabis with Risperdal as well. She will consider. Denies SI,HI, AH, VH. Asks to be considered for discharge prior to end of TDN. Family visited per team report. Medication Compliance: Yes Side effects from medications: No Attending Groups: Intermittent Review of Systems Acute medical concerns: No Medical Review of Systems: unchanged Review of Systems Review of Systems Denies Mental Status Exam Mental Status Exam Patient Appearance: Appropriate Patient Orientation: Person, Place, Time and Situation Level of Consciousness: Alert Patient Behavior: Talkative Mood Description: Calm and Appropriate Affect Description: Calm and Appropriate Patient Cognition Impaired: No Ability to Follow Directions: Good Speech Pattern: Spontaneous Speech Memory Description: Episodic Impaired Hallucinations: None Delusions: Not Present Thought Process: Intact Thought Content: positive for Intact Depressive Symptoms: Thoughts of /Suicide (denies) Judgement: Fair Diagnostics Vital Signs (24Hr): Vital Signs - 24 hr 02/23/25 08:00 02/23/25 19:44 Temperature 98.5 F 97.4 F Pulse Rate 73 93 Respiratory Rate 18 Blood Pressure 111/65 119/64 Pulse Oximetry 98 100 Oxygen Delivery Method Room Air Room Air BMI result Body Mass Index 42.3 Labs 02/23/25 07:41 Labs: Laboratory Results - last 48 hr 02/23/25 07:41 Sodium 143 Potassium 3.8 Chloride 107 Carbon Dioxide 25 Anion Gap 15 BUN 8 L Creatinine 0.65 Estim Creat Clear Calc 141.3 Estimated GFR > 60 Random Glucose 95 Estimat Average Glucose 108 Hemoglobin A1c % 5.4 Calcium 9.4 Magnesium 1.5 L Total Bilirubin 0.5 AST 26 ALT 14 Alkaline Phosphatase 50 Total Protein 6.9 Albumin 4.4 Triglycerides 80 Cholesterol 132 LDL Cholesterol, Calc 86 HDL Cholesterol 30 L Vitamin B12 301 Folate 9.1 TSH 0.75 Free T4 1.29 Medications Medications Current Medications Acetaminophen (Acetaminophen 325 Mg Tablet) 650 mg PO Q6H PRN PRN Reason: Headache/Pain, Scale 1-10 Al Hydroxide/Mg Hydroxide (Magnesium Hydrox/Alum Hydrox 30 Ml Oral.Susp) 30 ml PO Q6H PRN PRN Reason: Heartburn/Nausea Hydroxyzine HCl (Hydroxyzine Hcl 25 Mg Tablet) 25 mg PO Q6H PRN PRN Reason: mild anxiety Magnesium Hydroxide (Milk Of Magnesia 30 Ml Oral.Susp) 30 ml PO DAILY PRN PRN Reason: Constipation Melatonin (Melatonin 3 Mg Tablet) 6 mg PO BEDTIME [facility] Last Admin: 02/23/25 21:05 Dose: 6 mg Nicotine (Nicotine 21 Mg Patch.Td24) 21 mg TRANSDERMA DAILY PRN PRN Reason: nicotine craving Nicotine Polacrilex (Nicotine Polacrilex 2 Mg Gum) 2 mg BUCCAL Q2H PRN PRN Reason: Nicotine Cravings Last Admin: 02/23/25 17:47 Dose: 2 mg Olanzapine (Olanzapine 5 Mg Tablet) 5 mg PO BID PRN PRN Reason: agitation Risperidone (Risperidone 0.5 Mg Tablet) 0.5 mg PO BID [facility] Last Admin: 02/23/25 21:05 Dose: 0.5 mg Trazodone HCl (Trazodone Hcl 50 Mg Tablet) 50 mg PO BEDTIME MRX1 PRN PRN Reason: Insomnia Allergies Allergies Allergy/AdvReac Type Severity Reaction Status Date / Time No Known Allergies Allergy Verified 02/22/25 17:20 Assessment & Plan Assessment & Plan (1) Unspecified psychosis: Status: Acute Code(s): F29 - Unspecified psychosis not due to a substance or known physiological condition Plan HPI: Patient is a 34 years old single Slovenian speaking female with history of migraine, asthma, ADHD who presented with paranoid, hallucinations, increase anxiety and psychosis.. Patient initially presented complain of migraine and chest pain. She states that she has chest pain when she is anxious. Patient states that her mother trying to kill her with a gun and then she states that she thinks mom is dealing her we would. Mother reports that patient has become more paranoid with a past weeks become actually was over after Thanks. Mother states she has had similar episode in the past. Symptoms likely secondary to psychiatric psychosis. Formulation/clinical reasoning: Poor sleep, poor appetite, increase in depression, anxiety symptoms, increasing in psychotic behaviors. History of ADHD, no other history of psychiatric admission. No outpatient providers. Not currently on medications. Given the above information, patient will be benefit in restrictive environment for her own safety, medication management for psychotic/anxiety/depression symptoms. We will refer patient to outpatient psychiatry services for aftercare. Hospital course: 02/22/25: Start patient with low-dose of risperidone 0.5 twice a day as needed for psychosis. We will monitor for side effects/effectiveness. Marijuana use is not something new to her. We will continue to monitor to see if any symptoms induced from THC. Melatonin 6 mg at bedtime for insomnia. Patient is aware of other PRNs available. Currently paranoid, anxious. 02/23/25: Reviewed with team, plan of care reviewed, discussed with pt. She reviewed precipitants. Today, clear, alert, oriented. Hoping to discharge before Tuesday. I don't need to be here. 02/24/25: Continue treatment Plan Patient on 15 minute checks for safety. Admitted to [facility]. TDN. Tuesday.02/27/25. Work with treatment team to do collateral with family. Currently has no OP pyschiatrist/Therapsit or PCP Contact the hospitalist regarding hospitalist consultation on admission: Elissa 3.2 in the ED. UTox +THC. EKG NSR. Normal EKG. Informed Consent: understands Reason for continued inpatient stay Substantial Risk for: stable for discharge Time Spent With Patient Time: Total time managing care of this patient today ____ minutes.
[2025-02-24 08:00] VITALS: BP 111/60; PULSE 70; RESP 20; TEMP 36.4; O2SAT 97
[2025-02-24 20:00] VITALS: BP 117/71; PULSE 95; RESP 16; TEMP 36.8; O2SAT 98
[2025-02-25 08:00] VITALS: BP 105/55; PULSE 66; RESP 20; TEMP 36.4; O2SAT 98
--- NOTE | 2025-02-25 10:06 | HO.PSYCHPN ---
Subjective Subjective Date of Service: 02/25/25 Reason For Visit: F29 Subjective Notes: Conditional Voluntary and 3 Day Healthcare Proxy: No Guardianship: No Medical Problems Affecting Mental Status: No Interim History: Pt seen in [facility]. She is active, participating in groups and ready to leave . She will continue Risperdal and is not sure she will stop cannabis, but may return to the brand she has used in the past. Denies SI,HI,AH,VH. Slept 7 hours per team. Prepared to discharge. Asks to use [facility] for her prescription. Medication Compliance: Yes Side effects from medications: No Attending Groups: Yes Review of Systems Acute medical concerns: No Medical Review of Systems: unchanged Review of Systems Review of Systems Denies Mental Status Exam Mental Status Exam Patient Appearance: Appropriate Patient Orientation: Person, Place, Time and Situation Level of Consciousness: Alert Patient Behavior: Talkative Mood Description: Calm and Appropriate Affect Description: Calm and Appropriate Patient Cognition Impaired: No Ability to Follow Directions: Good Speech Pattern: Spontaneous Speech Memory Description: Episodic Impaired Hallucinations: None Delusions: Not Present Thought Process: Intact Thought Content: positive for Intact Depressive Symptoms: Thoughts of /Suicide (denies) Judgement: Fair Diagnostics Vital Signs (24Hr): Vital Signs - 24 hr 02/24/25 20:00 02/25/25 08:00 Temperature 98.2 F 97.6 F Pulse Rate 95 66 Respiratory Rate 16 20 Blood Pressure 117/71 105/55 L Pulse Oximetry 98 98 Oxygen Delivery Method Room Air Room Air BMI result Body Mass Index 42.3 Labs 02/23/25 07:41 Medications Medications Current Medications Acetaminophen (Acetaminophen 325 Mg Tablet) 650 mg PO Q6H PRN PRN Reason: Headache/Pain, Scale 1-10 Al Hydroxide/Mg Hydroxide (Magnesium Hydrox/Alum Hydrox 30 Ml Oral.Susp) 30 ml PO Q6H PRN PRN Reason: Heartburn/Nausea Hydroxyzine HCl (Hydroxyzine Hcl 25 Mg Tablet) 25 mg PO Q6H PRN PRN Reason: mild anxiety Magnesium Hydroxide (Milk Of Magnesia 30 Ml Oral.Susp) 30 ml PO DAILY PRN PRN Reason: Constipation Melatonin (Melatonin 3 Mg Tablet) 6 mg PO BEDTIME [facility] Last Admin: 02/24/25 21:38 Dose: 6 mg Nicotine (Nicotine 21 Mg Patch.Td24) 21 mg TRANSDERMA DAILY PRN PRN Reason: nicotine craving Nicotine Polacrilex (Nicotine Polacrilex 2 Mg Gum) 2 mg BUCCAL Q2H PRN PRN Reason: Nicotine Cravings Last Admin: 02/25/25 09:37 Dose: 2 mg Olanzapine (Olanzapine 5 Mg Tablet) 5 mg PO BID PRN PRN Reason: agitation Risperidone (Risperidone 0.5 Mg Tablet) 0.5 mg PO BID [facility] Last Admin: 02/25/25 08:21 Dose: 0.5 mg Trazodone HCl (Trazodone Hcl 50 Mg Tablet) 50 mg PO BEDTIME MRX1 PRN PRN Reason: Insomnia Allergies Allergies Allergy/AdvReac Type Severity Reaction Status Date / Time No Known Allergies Allergy Verified 02/22/25 17:20 Assessment & Plan Assessment & Plan (1) Unspecified psychosis: Status: Acute Code(s): F29 - Unspecified psychosis not due to a substance or known physiological condition Plan HPI: Patient is a 34 years old single Urdu speaking female with history of migraine, asthma, ADHD who presented with paranoid, hallucinations, increase anxiety and psychosis.. Patient initially presented complain of migraine and chest pain. She states that she has chest pain when she is anxious. Patient states that her mother trying to kill her with a gun and then she states that she thinks mom is dealing her we would. Mother reports that patient has become more paranoid with a past weeks become actually was over after Thanksgiving. Mother states she has had similar episode in the past. Symptoms likely secondary to psychiatric psychosis. Formulation/clinical reasoning: Poor sleep, poor appetite, increase in depression, anxiety symptoms, increasing in psychotic behaviors. History of ADHD, no other history of psychiatric admission. No outpatient providers. Not currently on medications. Given the above information, patient will be benefit in restrictive environment for her own safety, medication management for psychotic/anxiety/depression symptoms. We will refer patient to outpatient psychiatry services for aftercare. Hospital course: 02/22/25: Start patient with low-dose of risperidone 0.5 twice a day as needed for psychosis. We will monitor for side effects/effectiveness. Marijuana use is not something new to her. We will continue to monitor to see if any symptoms induced from THC. Melatonin 6 mg at bedtime for insomnia. Patient is aware of other PRNs available. Currently paranoid, anxious. 02/23/25: Reviewed with team, plan of care reviewed, discussed with pt. She reviewed precipitants. Today, clear, alert, oriented. Hoping to discharge before Tuesday. I don't need to be here. 02/25/25: Discharge 02/26. Plan Patient on 15 minute checks for safety. Admitted to M5. TDN. Tuesday.02/27/25. Work with treatment team to do collateral with family. Currently has no OP pyschiatrist/Therapsit or PCP Contact the hospitalist regarding hospitalist consultation on admission: Deisium 3.2 in the ED. UTox +THC. EKG NSR. Normal EKG. Reason for continued inpatient stay Substantial Risk for: stable for discharge Time Spent With Patient Time: Total time managing care of this patient today ____ minutes.
[2025-02-25 20:00] VITALS: BP 132/64; PULSE 100; RESP 16; TEMP 36.4; O2SAT 99
--- NOTE | 2025-02-26 04:53 | P.DS_ITS ---
DS: Providers Provider Date of admission: 02/22/25 14:49 Primary care physician: None Physician Consults: 02/22/25 17:25 Consult to Hospitalist Routine Comment: Consulting Provider: [facility] Reason For Exam: Admission physical DS: Diagnosis Discharge Diagnosis (1) Unspecified psychosis: Status: Acute DS: Medications Discharge Medications Home Medications: Previous Rx's ?Medication ?Instructions ?Recorded risperidone 0.5 mg tablet 0.5 mg PO BID #60 tabs 02/26 Data Data Completed and Pending Completed studies during hospitalization [Text1]: 02/23/25 07:41 Sodium 143 Potassium 3.8 Chloride 107 Carbon Dioxide 25 Anion Gap 15 BUN 8 L Creatinine 0.65 Estim Creat Clear Calc 141.3 Estimated GFR > 60 Random Glucose 95 Estimat Average Glucose 108 Hemoglobin A1c % 5.4 Calcium 9.4 Magnesium 1.5 L Total Bilirubin 0.5 AST 26 ALT 14 Alkaline Phosphatase 50 Total Protein 6.9 Albumin 4.4 Triglycerides 80 Cholesterol 132 LDL Cholesterol, Calc 86 HDL Cholesterol 30 L Vitamin B12 301 Folate 9.1 TSH 0.75 Free T4 1.29 DS: Summary Time Spent with Patient Time attestation: Total time managing care of this patient today ____ minutes. Discharge Plan Discharge Anticipated Discharge Date/Time: 02/26/25 11:00 Patient Disposition: Home, Self-Care Discharge Diagnosis: Psychosis Cannabis Use Disorder Referrals: [facility] Psychiatry Walk-In [Other] - 1 Day Referral Note: They offer same-day walk-in appointments for psychiatry. This is an intake and once you complete the intake they will give you a psychiatry appointment. Please bring your, ID and insurance card. The walk-in hours are: M-F 7:30am - 4:30pm Look for the sign that says outpatient services, go through the door and it is to the left. Physician,None [Primary Care Provider, Medical] - 1 Week Discharge Medications: New risperidone 0.5 mg Tablet 0.5 mg PO BID Qty: 60 0RF Discharge Orders: Discharge Order (Routine); Ordered 02/26/25 Ordered By: Katheryn Petersen Diet: Advance to usual diet Activity on Discharge: As tolerated Stand Alone Forms: Patient Portal Discharge page Print Language: Yoruba Care Plan Goals: Abstinence from substances Mood and Behavioral Stabilization Health Concerns: Mood and Behavioral Stabilization Abstinence from Substances Plan of Treatment: We believe you have had a psychotic response to cannabis. It is suggested that you not continue to use cannabis Take medications as directed Assessment: Discharge on a three day notice of intent. No SI,HI,AH,VH. Pt agrees with her plan of care. No sx of acute cole, psychosis
[2025-02-26 08:00] VITALS: BP 119/60; PULSE 93; RESP 16; TEMP 36.5; O2SAT 99
== END 2025-02-26 11:02 | disposition home or self-care (01) | DRG 751 ==
PROVIDERS: Nurse Practitioner Psychiatric/Mental Health; Admitting Provider Psychiatry & Neurology Psychiatry; Visit Provider Clinical Nurse Specialist Psychiatric/Mental Health, Adult
DX: F29 Unspecified psychosis not due to a substance or known physiological condition (principal); F12.90 Cannabis use, unspecified, uncomplicated; F90.9 Attention-deficit hyperactivity disorder, unspecified type; J45.20 Mild intermittent asthma, uncomplicated; Z87.891 Personal history of nicotine dependence
CPT/HCPCS: 36415; 80053; 80061; 82607; 82746; 83036; 83735; 84439; 84443

== ENCOUNTER → 2025-02-22 14:49 | Outpatient (BNV) | payer MEDICAID, SELFPAY | PROVIDERS: Admitting Provider Psychiatry & Neurology Psychiatry; Visit Provider Student in an Organized Health Care Education/Training Program | DX: Z00.8 Encounter for other general examination (principal) | CPT/HCPCS: 99222 ==

== ENCOUNTER → 2025-02-22 14:49 | Outpatient (BNV) | payer MEDICAID, SELFPAY | PROVIDERS: Admitting Provider Psychiatry & Neurology Psychiatry; Visit Provider Clinical Nurse Specialist Psychiatric/Mental Health, Adult | DX: F29 Unspecified psychosis not due to a substance or known physiological condition (principal) | CPT/HCPCS: 90792; 99232 ==